=== PATIENT | female | born 1950 | race Caucasian/White ===

== ENCOUNTER → 2017-09-05 | Outpatient (CLI) | payer OTHER ==
[~2017-09-05] MED LIST: Canasa1000 MG; Combigan Eye Dro5 ML; DORZOPSO; LATA.005SO; MONT10T
== END ==
LOC: LAB SHORT 16:20 → LAB 16:20
PROVIDERS: Student in an Organized Health Care Education/Training Program
DX: Z01.419 Encounter for gynecological examination (general) (routine) without abnormal findings (principal)
CPT/HCPCS: G0145

== ENCOUNTER → 2020-11-20 | Outpatient (CLI) | payer MEDICARE ==
[~2020-11-20] MED LIST changes: +Azopt10 ML BOTHEYES; +COMBIGAN 0.2%-0.5 ML BOTHEYES; +DILT180 PO; +LATA.005SO BOTHEYES; +MONT10T PO; +NASONEX17 G1; +[UNRECOGNIZED DRUG - OTHER] PO
== END | disposition home or self-care (01) ==
LOC: LAB SHORT 12:20 → LAB 12:20
DX: N84.1 Polyp of cervix uteri (principal)
CPT/HCPCS: 88305

== ENCOUNTER → 2020-11-20 | Outpatient (CLI) | payer MEDICARE ==
[2020-11-25 11:10] LABS: HPV 16 Negative (Negative); HPV 18 Negative (Negative); HPV OTHER HR TYPES Negative (Negative)
== END ==
LOC: LAB 10:25 → LAB SHORT 10:25
PROVIDERS: Student in an Organized Health Care Education/Training Program
DX: Z01.419 Encounter for gynecological examination (general) (routine) without abnormal findings (principal)
CPT/HCPCS: 87624; G0123; G0145

== ENCOUNTER → 2022-02-07 | Outpatient (CLI) | payer MEDICARE | LOC: LAB 11:24 → LAB SHORT 11:24 | DX: K51.20 Ulcerative (chronic) proctitis without complications (principal) | CPT/HCPCS: 83993 ==

== ENCOUNTER 2023-10-22 13:29 | Inpatient (IN) | payer MEDICARE ==
[~2023-10-22] VITALS: Ht 154.9 cm; Wt 61.7 kg
[~2023-10-22 13:29] MED LIST changes: -BRINZOLAMIDE15 ML BOTHEYES; -KETO.5OPSO LEFTEYE; -LOSA25 PO; +Piperacillin/Tazobactam Sod 3.375 GM in NS 100 ML IV SCH
[2023-10-22] MEDS ORDERED: LOSA25 PO (15:24)
[2023-10-22] MEDS ORDERED: CefOXitin Sodium 1,000 MG in NS 50 ML IV ONE (16:00)
[2023-10-22] MEDS ORDERED: NS 1,000 ML IV SCH (16:05)
[2023-10-22] MEDS ORDERED: FentaNYL Citrate 50 MCG/ML 2 ML Injection IV ONE (16:30)
[2023-10-22] MEDS ORDERED: Piperacillin/Tazobactam Sod 4.5 GM in NS 100 ML IV ONE (17:10)
[2023-10-22] MEDS ORDERED: Ondansetron HCl 2 MG / ML 2ML Vial IV PRN (17:20)
[2023-10-22] MEDS ORDERED: FentaNYL Citrate 50 MCG/ML 2 ML Injection IV PRN (17:25)
[2023-10-22] MEDS ORDERED: OxyCODONE HCL 5 MG TAB PO PRN (17:25)
[2023-10-22 19:59] LABS: Bilirubin, Direct 0.4 mg/dL (0.0-0.3); Bilirubin, Indirect 0.7 mg/dL (0.1-0.7); Bilirubin, Total 1.1 mg/dL (0.1-1.0)
[2023-10-22] MEDS ORDERED: Lactobacil 2-S.Thermo-Bifido 1 1 Cap PO SCH (21:00)
[2023-10-22 21:21] VITALS: BP 169/78
[2023-10-22] MEDS ORDERED: BRINZOLAMIDE15 ML BOTHEYES (21:47)
[2023-10-22] MEDS ORDERED: KETO.5OPSO LEFTEYE (21:48)
[2023-10-23] VITALS (12 sets, daily range): BP systolic 137–180; BP diastolic 62–90
[2023-10-23] MEDS ORDERED: NS 250 ML IV PRN (01:35)
--- NOTE | 2023-10-23 04:10 | NUR ---
SHIFT SUMMARY DICK WAS ALERT AND ORIENTED WHEN SHE ARRIVED FROM THE ED AT AROUND 2100. PT ABLE TO AMBULATE INDEPENDENTLY TO . ADMIT COMPLETE, PAPER ORDERS ADDED TO MEDITECH. PT NPO FROM MIDNIGHT. NO ACUTE EVENTS OR CHANGES TO CONDITION.
[2023-10-23 04:45] LABS: BASOPHILS PERCENT AUTO 0 % (0-2); EOSINOPHILS ABSOLUTE AUTO 0.01 K/mm3 (0.00-0.68); EOSINOPHILS PERCENT AUTO 0 % (0-6); Hematocrit 36.9 % (33.0-51.0); Hemoglobin 13.1 g/dL (11.5-16.0); IMMATURE GRAN ABSOLUTE AUTO 0.02 K/mm3 (0.00-0.10); IMMATURE GRAN PERCENT AUTO 0 % (0-1); LYMPHOCYTES PERCENT AUTO 14 % (21-46); MONOCYTES ABSOLUTE AUTO 0.72 K/mm3 (0.16-1.47); MONOCYTES PERCENT AUTO 10 % (4-13); Mean Corpuscular HGB Conc 35.5 g/dL (31.5-36.5); Mean Corpuscular Volume 90 fL (80-100); Mean Platelet Volume 10.3 fL (9.1-12.4); NEUTROPHILS ABSOLUTE AUTO 5.55 K/mm3 (1.96-9.15); NEUTROPHILS PERCENT AUTO 76 % (41-73); Platelet Count 220 K/mm3 (150-400); RDW Coefficient Variation 12.9 % (11.7-14.2); RDW Standard Deviation 42.3 fL (35.1-46.3)
[2023-10-23 05:05] LABS: Albumin, Blood 3.1 g/dL (3.4-5.0); Albumin/Globulin Ratio 1.1 (0.8-1.8); Bilirubin, Total 1.4 mg/dL (0.1-1.0); Calcium, Blood 7.9 mg/dL (8.5-10.1); Creatinine, Blood 0.67 mg/dL (0.40-1.00); Globulin, Blood 2.9 g/dL (2.2-4.0); Magnesium, Blood 2.1 mg/dL (1.6-2.4); Phosphorus, Blood 2.5 mg/dL (2.5-4.9)
[2023-10-23] MEDS ORDERED: Enoxaparin 40 MG/0.4 ML SYR SC SCH (09:00)
[2023-10-23 11:01] LABS: SARS-Cov-2 (COVID-19) PCR, MMC POSITIVE (NEGATIVE)
[2023-10-23] MEDS ORDERED: Lactated Ringer's 1,000 ML IV SCH (14:15)
[2023-10-23] MEDS ORDERED: Bupivacaine 0.5% Inj 50 ML Vial ONE (15:21)
[2023-10-23] MEDS ORDERED: propofoL 20 ML IV ONE (16:33)
[2023-10-23] MEDS ORDERED: FentaNYL Citrate 50 MCG/ML 2 ML Injection ONE (16:33)
--- NOTE | 2023-10-23 16:34 | NUR ---
PRE OP NOTE PT READY FOR SURGERY IN THE SURGICAL FLOOR ROOM BY DSU RN. PT A&OX4, CHATTING C STAFF. 22G IV TO L WRIST PATENT AND RUNNING LR TKO. Patient confirms NPO status and agrees with scheduled surgery. Pre-Op teaching done. Pt verbalizes understanding.PT TO SEE ANESTHESIA IN OR 2/2 COVID+. PT AMBULATORY IN ROOM. PT TRANSFERRED TO OR DIRECT FROM SURGICAL FLOOR ROOM.
--- NOTE | 2023-10-23 17:09 | NUR ---
10/23/23 1709 Leah Arango NO PREOP ANTIBIOTICS ORDERED PER PATIENT IS ON SCHEDULED ANTIBIOTICS.
[2023-10-23] MEDS ORDERED: SuccINYLCHOLINE Chloride 100 MG/5 ML 5MLSYR ONE (17:38)
[2023-10-23] MEDS ORDERED: Sugammadex Sodium 200 MG/2ML SDV (100 MG/ML) ONE (17:38)
[2023-10-23] MEDS ORDERED: Phenylephrine HCl 100 MCG/ML-NS 10MLSYR (1MG/10ML) ONE (17:38)
[2023-10-23] MEDS ORDERED: Dexamethasone Sod Phos 10 MG/ML 1ML VIAL ONE (17:38)
[2023-10-23] MEDS ORDERED: Rocuronium Bromide 10 MG/ML 5ML Injection IV ONE (17:38)
[2023-10-23] MEDS ORDERED: Ondansetron HCl 2 MG / ML 2ML Vial ONE (17:38)
[2023-10-23] MEDS ORDERED: Lidocaine HCl 2% 20 ML MDV ONE (17:38)
[2023-10-23] MEDS ORDERED: HYDROcodone 5-APAP 325 TAB PO PRN (18:05)
--- NOTE | 2023-10-23 19:26 | NUR ---
SHIFT SUMMARY PT ARRIVED FROM PACU JUST BEFORE SHIFT CHANGE, POD0 LAP PEACE, A/OX4, VSS, TOLERATING PO POST OP, ELISSA DRAIN IN PLACE DRAINING SS DRAINAGE. PAIN TOLERABLE. DISCUSSED PLAN OF CARE FOR THE EVENING AND THE MORNING. NO QUESTIONS AT THIS TIME, NO ACUTE EVENTS THIS SHIFT, CALL LIGHT IN [facility].
[2023-10-23] MEDS ORDERED: Misc. Opth BOTHEYES SCH (21:00)
[2023-10-23] MEDS ORDERED: Brimonidine Tartrate 0.2% Opth 5 ml BOTHEYES SCH ×2 (21:00)
[2023-10-23] MEDS ORDERED: Dorzolamide 2% Opth Soln BOTHEYES SCH (21:00)
[2023-10-23] MEDS ORDERED: Timolol 0.5% Opth Soln 5 ML BOTHEYES SCH (21:00)
[2023-10-23] MEDS ORDERED: Losartan Potassium 25 MG Tab PO SCH (21:00)
[2023-10-23] MEDS ORDERED: Ketorolac 0.5% Opth Soln BTL LEFTEYE SCH (21:00)
[2023-10-23] MEDS ORDERED: Dorzolamide/Timolol Opth Soln 10 ML BOTHEYES SCH (21:00)
--- NOTE | 2023-10-24 04:32 | NUR ---
SHIFT SUMMARY SOMMER WAS ALERT AND FULLY ORIENTED ON ASSESMENT, PT HAD JUST RETURNED FROM SURGERY AT START OF SHIFT. INSCISION C/D/I EXCEPT FOR SCANT SANGUINEOUS DRAINAGE AROUND ELISSA DRAIN SITE, ELISSA DRAIN COLLECTING MODERATE SEROSANGUINEOUS DRAINAGE. PT ABLE TO AMBULATE AND URINATE APPROPRIATELY. PAIN MANAGED TO TOLERABLE LEVEL. NO ACUTE EVENTS THIS SHIFT. PT RESTING
[2023-10-24 04:42] VITALS: BP 173/76
[2023-10-24 05:14] LABS: BASOPHILS PERCENT AUTO 0 % (0-2); EOSINOPHILS PERCENT AUTO 0 % (0-6); Hematocrit 37.2 % (33.0-51.0); Hemoglobin 12.7 g/dL (11.5-16.0); IMMATURE GRAN ABSOLUTE AUTO 0.01 K/mm3 (0.00-0.10); IMMATURE GRAN PERCENT AUTO 0 % (0-1); LYMPHOCYTES PERCENT AUTO 9 % (21-46); MONOCYTES ABSOLUTE AUTO 0.42 K/mm3 (0.16-1.47); MONOCYTES PERCENT AUTO 6 % (4-13); Mean Corpuscular HGB 30.8 pg (26.0-34.0); Mean Corpuscular HGB Conc 34.1 g/dL (31.5-36.5); Mean Corpuscular Volume 90 fL (80-100); Mean Platelet Volume 10.3 fL (9.1-12.4); NEUTROPHILS ABSOLUTE AUTO 5.49 K/mm3 (1.96-9.15); NEUTROPHILS PERCENT AUTO 84 % (41-73); Platelet Count 227 K/mm3 (150-400); RDW Coefficient Variation 13.1 % (11.7-14.2); RDW Standard Deviation 43.8 fL (35.1-46.3); Red Blood Cell Count 4.12 M/mm3 (3.80-5.20); White Blood Cell Count 6.52 K/mm3 (4.00-11.30)
[2023-10-24 05:32] LABS: Bun/Creatinine Ratio 20.4 (12.0-20.0); Calcium, Blood 7.8 mg/dL (8.5-10.1); Creatinine, Blood 0.64 mg/dL (0.40-1.00); Potassium, Blood 3.6 mmol/L (3.5-5.5)
[2023-10-24 06:25] VITALS: BP 140/55
[2023-10-24 07:25] VITALS: BP 169/70
[2023-10-24] MEDS ORDERED: Ascorbic Acid 500 MG Tab PO SCH (09:00)
[2023-10-24] MEDS ORDERED: Cholecalciferol 1000 Unit Tablet (=25MCG) PO SCH (09:00)
[2023-10-24 14:57] VITALS: BP 139/58
[2023-10-24 19:06] VITALS: BP 159/77
--- NOTE | 2023-10-24 19:12 | NUR ---
SHIFT SUMMARY POD1 LAP PEACE, Mak/OX4, VSS, TOLERATING PO, PAIN WELL MANAGED, INDEPENDENT IN THE ROOM, IV ABX INFUSED THIS SHIFT, PT C/O THE FOOD SELECTION AND WAS ENCOURAGED TO CALL AND PLACE HER ORDER FOR WHAT SHE WOULD LIKE BUT WOULD NEED TO DO IT BY THE TIMES INDICATED. NO OTHER EVENTS THIS SHIFT, CALL LIGHT IN REACH.
--- NOTE | 2023-10-25 01:34 | NUR ---
SKIN ASSESSMENT-REDNESS IN FACE PT REPORTS THAT SHE HAS HAD REDNESS IN HER FACE FOR THE LAST TWO DAYS, AND REPORTS THAT SHE IS UNSURE OF WHAT HAS CAUSED IT. SKIN APPEARS SLIGHLY FLUSHED IN HER CHEEKS. SHE ASKED IF IT WAS THE ANTIBIOTICS, OR PAIN MEDICATION SHE WAS ON. PT HAS BEEN ON ZOSYN FOR SEVERAL DAYS WITHOUT ANY REPORTED EFFECTS, AND NO REPORTED EFFECTS FROM PAIN MEDICATIONS. PT HAS BEEN WITHOUT ANY RESPIRATORY DISTRESS, AIRWAY IS CLEAR, AND DENIES ANY ITCHING. NO NAUSEA OR VOMITTING. PT MADE AWARE THAT SHE HAD BEEN ON BOTH MEDICATIONS FOR SEVERAL DAYS. SHE STATES THAT SHE WOULD LIKE TO PROCEED WITH RECEIVING MIDNIGHT DOSE OF ZOSYN. AND STATED "I DO NOT WANT TO GET AN INFECTION". NOTIFIED GENERAL FREIGHT AGENT OF PT REPORTED SYMPTOMS. DR. LAWLER CALLED AND NOTIFIED OF PT REPORTED SYMPTOMS. KAREN ORDERED PRN.
[2023-10-25] MEDS ORDERED: DiphenhydrAMINE HCl 50 MG/ML 1ML Vial IV PRN (01:35)
[2023-10-25 04:49] VITALS: BP 183/77
--- NOTE | 2023-10-25 05:20 | NUR ---
SHIFT SUMMARY PT HAS RESTED T/O THE SHIFT. PT HAS BEEN INDEPENDENT IN THE ROOM. SURGICAL SITE WNL. RESP E/U ON RA, SATS WNL. VITALS STABLE. PLAN IS FOR DISCHARGE TODAY. BED IN LOWEST POSITION, CALL LIGHT WITHIN REACH.
[2023-10-25 05:37] VITALS: BP 180/67
--- NOTE | 2023-10-25 05:49 | NUR ---
HYPERTENSIVE PT BLOOD PRESSURE 180/67. DR. LAWLER CALLED AND NOTIFIED. HE ORDERED TO GIVE HER SCHEDULED 0900 DOSE OF COZAAR 25 MG NOW.
[2023-10-25 05:54] LABS: Albumin, Blood 2.5 g/dL (3.4-5.0); Albumin/Globulin Ratio 0.8 (0.8-1.8); Bun/Creatinine Ratio 15.8 (12.0-20.0); Creatinine, Blood 0.63 mg/dL (0.40-1.00); Globulin, Blood 3.1 g/dL (2.2-4.0); Potassium, Blood 3.1 mmol/L (3.5-5.5); Total Protein, Blood 5.6 g/dL (6.4-8.2)
[2023-10-25 07:31] VITALS: BP 157/70
[2023-10-25] MEDS ORDERED: Potassium Chloride 20 MEQ TabCR PO ONE (09:00)
--- NOTE | 2023-10-25 09:41 | NUR ---
IN ROOM TO DC ELISSA DRAIN AND EDUCATE ON DC/FOLLOW UP. THIS RN LET DR. RUSSELL KNOW PT IS READY FOR DC.
[2023-10-25] MEDS ORDERED: ASCO500 PO (10:17)
[2023-10-25] MEDS ORDERED: HYDR1TAB94 PO (10:24)
--- NOTE | 2023-10-25 12:44 | NUR ---
DISCHARGE: HTN BETTER THIS MORNING, SEE VS. PT DENIES DIZZINESS. PER DR. BRITO OK TO DC. DC PACKET PRINTED AND PT EDUCATED. IV DC'D WNL, TIP INTACT.PT GIVEN PAIN SCRIPT. PT LEFT UNIT VIA WHEELCHAIR WITH RUCHI CORTES AROUND 11
== END 2023-10-25 11:35 | disposition home or self-care (01) | DRG 417 ==
LOC: ER 13:29 → ERHOLD 19:24 → SURS 19:24
PROVIDERS: Internal Medicine; Student in an Organized Health Care Education/Training Program; Surgery; ADMIT Family Medicine
PROC: 0FT44ZZ Resection of Gallbladder, Percutaneous Endoscopic Approach (ICD-10-PCS; principal; 2023-10-23 15:00)
DX: K80.00 Calculus of gallbladder with acute cholecystitis without obstruction (principal); U07.1 COVID-19; D17.71 Benign lipomatous neoplasm of kidney; I10 Essential (primary) hypertension; E87.6 Hypokalemia; L23.9 Allergic contact dermatitis, unspecified cause; K21.9 Gastro-esophageal reflux disease without esophagitis; K82.8 Other specified diseases of gallbladder; Z79.899 Other long term (current) drug therapy; Z88.2 Allergy status to sulfonamides; Z88.8 Allergy status to other drugs, medicaments and biological substances; Z91.041 Radiographic dye allergy status; Z91.040 Latex allergy status; R10.13 Epigastric pain
CPT/HCPCS: 36415; 74176; 74300; 76705; 80048; 80053; 82247; 82248; 83690; 83735; 84100; 85025; 87086; 88304; 94760; 96374; 99285-25; A9270; C1729; C1894; J0330; J1100; J1650; J2371; J2405; J2543; J2704; J3010; J7030; J7050; J7120; U0002

== ENCOUNTER → 2023-10-22 | Outpatient (CLI) | payer MEDICARE ==
[~2023-10-22] MED LIST changes: +BRINZOLAMIDE15 ML BOTHEYES; +KETO.5OPSO LEFTEYE; +LOSA25 PO; +OLME20; +ROCKLATAN 0.022.5 M1 BOTHEYES
[2023-10-22 12:19] LABS: BASOPHILS ABSOLUTE AUTO 0.01 K/mm3 (0.00-0.23); BASOPHILS PERCENT AUTO 0 % (0-2); EOSINOPHILS PERCENT AUTO 0 % (0-6); Hematocrit 42.9 % (33.0-51.0); Hemoglobin 15.3 g/dL (11.5-16.0); IMMATURE GRAN ABSOLUTE AUTO 0.01 K/mm3 (0.00-0.10); IMMATURE GRAN PERCENT AUTO 0 % (0-1); LYMPHOCYTES ABSOLUTE AUTO 0.76 K/mm3 (0.84-5.20); LYMPHOCYTES PERCENT AUTO 7 % (21-46); MONOCYTES ABSOLUTE AUTO 0.72 K/mm3 (0.16-1.47); MONOCYTES PERCENT AUTO 7 % (4-13); Mean Corpuscular HGB 31.2 pg (26.0-34.0); Mean Corpuscular HGB Conc 35.7 g/dL (31.5-36.5); Mean Corpuscular Volume 87 fL (80-100); Mean Platelet Volume 10.7 fL (9.1-12.4); NEUTROPHILS ABSOLUTE AUTO 8.78 K/mm3 (1.96-9.15); NEUTROPHILS PERCENT AUTO 85 % (41-73); Platelet Count 282 K/mm3 (150-400); RDW Coefficient Variation 12.9 % (11.7-14.2); RDW Standard Deviation 41.1 fL (35.1-46.3); Red Blood Cell Count 4.91 M/mm3 (3.80-5.20); White Blood Cell Count 10.28 K/mm3 (4.00-11.30)
[2023-10-22 12:35] LABS: Albumin, Blood 4.2 g/dL (3.4-5.0); Bilirubin, Total 1.1 mg/dL (0.1-1.0); Bun/Creatinine Ratio 25.8 (12.0-20.0); Calcium, Blood 9.1 mg/dL (8.5-10.1); Creatinine, Blood 0.58 mg/dL (0.40-1.00); Potassium, Blood 3.6 mmol/L (3.5-5.5); Total Protein, Blood 8.2 g/dL (6.4-8.2)
== END | disposition home or self-care (01) ==
LOC: LAB SHORT 11:11 → LAB 11:11
PROVIDERS: Physician Assistant
DX: R10.13 Epigastric pain (principal)
CPT/HCPCS: 80053; 83690; 85025; 87086